=== PATIENT | female | born 1995 | race Hispanic/Latino ===

== ENCOUNTER 2024-02-19 06:32 | Inpatient (IN) | payer BC, SELFPAY ==
[2024-02-19 07:10] VITALS: BMI 35.5
[2024-02-19] MEDS ORDERED: Misoprostol 200 MCG TAB PR PRN (07:38)
[2024-02-19] MEDS ORDERED: Lorazepam 2 MG/ML VIAL SLOW IVP PRN (07:38)
[2024-02-19] MEDS ORDERED: fentaNYL 50 mcg/mL 1 mL Vial SLOW IVP PRN (07:38)
[2024-02-19] MEDS ORDERED: Diphenoxylate HCl/Atropine Tablet PO PRN (07:38)
[2024-02-19] MEDS ORDERED: HYDROcodone/Acetaminophen 5/325 mg Tablet PO PRN ×2 (07:38→17:32)
[2024-02-19] MEDS ORDERED: Acetaminophen 500 MG TAB PO PRN (07:38)
[2024-02-19] MEDS ORDERED: Labetalol HCl 100 MG/20 ML VIAL SLOW IVP PRN ×2 (07:38)
[2024-02-19] MEDS ORDERED: Methylergonovine 0.2 MG/ML VIAL IM PRN (07:38)
[2024-02-19] MEDS ORDERED: Calcium Gluc 4.6 MEQ/10 ML (100 MG/ML) SLOW IVP PRN (07:38)
[2024-02-19] MEDS ORDERED: hydrALAZINE 20 MG/ML VIAL SLOW IVP PRN ×3 (07:38)
[2024-02-19] MEDS ORDERED: Carboprost 250 MCG/ML AMP IM PRN (07:38)
[2024-02-19] MEDS ORDERED: Promethazine HCl 25 MG/ML VIAL IM PRN (07:38)
[2024-02-19] MEDS ORDERED: Ondansetron PF 4 MG/2 ML Vial IVP PRN (07:38)
[2024-02-19] MEDS ORDERED: Lidocaine 1% (PF) 30 ML VIAL SC PRN (07:38)
[2024-02-19] MEDS ORDERED: Ibuprofen 800 MG TAB PO PRN (07:38)
[2024-02-19] MEDS ORDERED: Oxytocin 30 units/NS 500 ML 500 ML IV SCH ×2 (07:45)
[2024-02-19] MEDS ORDERED: Magnesium Sulfate 20 gm/500 ml 20 GM/500 ML BAG IVPB SCH (07:45)
[2024-02-19] MEDS ORDERED: Lactated Ringer's 1,000 ML IV SCH (07:45)
[2024-02-19 08:03] LABS: Hematocrit 34.9 % (34.9-44.5); Hemoglobin 11.4 g/dL (12.0-15.5); Mean Corpuscular HGB CONC 32.7 g/dL (32.0-36.0); Mean Corpuscular Hemoglobin 27.3 pg (27.0-33.0); Mean Corpuscular Volume 83.5 fL (81.6-98.3); Mean Platelet Volume 10.9 fL (7.4-10.4); Platelet Count 314 10x3/uL (150-450); RBC Distribution Width 13.2 % (11.5-14.5); Red Blood Cell (RBC) Count 4.18 10x6/uL (3.90-5.03); White Blood Cell (WBC) Count 11.6 10x3/uL (3.5-10.5)
[2024-02-19 08:18] LABS: ALT (SGPT) 16 U/L (8-55); AST (SGOT) 17 U/L (5-34); Albumin 2.6 g/dL (3.5-5.0); Alkaline Phosphatase 128 U/L (40-110); Anion Gap 15 mmol/L (10-20); BUN (Urea Nitrogen) 9 mg/dL (7.0-18.7); Bilirubin, Total 0.3 mg/dL (0.2-1.2); Calc. Creatinine Clearance 207 mL/min (70-130); Calcium 8.7 mg/dL (7.8-10.44); Carbon Dioxide 18 mmol/L (22-29); Chloride 108 mmol/L (98-107); Estimated GFR 124; Globulin 3.8 g/dL (2.4-3.5); Glucose 80 mg/dL (70-105); Potassium 3.9 mmol/L (3.5-5.1); Protein, Total 6.4 g/dL (6.0-8.3); Sodium 137 mmol/L (136-145)
[2024-02-19 08:42] LABS: HBsAg Index 0.17 S/CO (0-0.99); Hep B Surf Ag - L&D Non-Reactive S/CO (NonReactive)
[2024-02-19 08:43] LABS: Syphilis Antibody Nonreactive (Nonreactive); Syphilis Antibody Index 0.06 S/CO (<1.00 Non-Reactive)
[2024-02-19] MEDS: Ibuprofen 800 MG TAB PO PRN (17:43)
[2024-02-19] MEDS: Magnesium Sulfate 20 gm/500 ml 20 GM/500 ML BAG ONE (23:11)
[2024-02-20] MEDS ORDERED: Benzocaine-Menthol 82.5 ML CAN TOP PRN ×2 (12:08→12:20)
[2024-02-20] MEDS ORDERED: Witch Hazel 100 PAD JAR TOP PRN (12:09)
[2024-02-20] MEDS ORDERED: diphenhydrAMINE 25 MG CAP PO PRN (12:20)
[2024-02-20] MEDS ORDERED: HYDROcodone/Acetaminophen 5/325 mg Tablet PO PRN ×2 (12:20)
[2024-02-20] MEDS ORDERED: Promethazine HCl 25 MG/ML VIAL IM PRN (12:20)
[2024-02-20] MEDS ORDERED: Milk Of Magnesia 30 ML UDCUP PO PRN (12:20)
[2024-02-20] MEDS ORDERED: Preparation H Ointment 28 GM TUBE PR PRN (12:20)
[2024-02-20] MEDS ORDERED: Bisacodyl 10 MG SUPP PR PRN (12:20)
[2024-02-20] MEDS ORDERED: Lanolin Ointment 7 GM TUBE TOP PRN (12:20)
[2024-02-20] MEDS ORDERED: hydrALAZINE 20 MG/ML VIAL SLOW IVP PRN (12:20)
[2024-02-20] MEDS ORDERED: Ondansetron PF 4 MG/2 ML Vial IVP PRN (12:20)
[2024-02-20] MEDS: Prenatal Vitamin 1 TAB PO SCH (13:47)
[2024-02-20] MEDS: Docusate 100 MG CAP PO SCH ×2 (13:47→21:45)
[2024-02-20] MEDS: Ibuprofen 800 MG TAB PO SCH (13:49)
[2024-02-20] MEDS: Ferrous Sulfate 325 MG TAB PO SCH (19:02)
[2024-02-21] MEDS: Magnesium Sulfate 20 gm/500 ml 20 GM/500 ML BAG ONE (01:05)
[2024-02-21] MEDS: hydrALAZINE 20 MG/ML VIAL ONE ×2 (01:05→01:06)
[2024-02-21] MEDS: Ondansetron PF 4 MG/2 ML Vial ONE (01:06)
[2024-02-21] MEDS: Boostrix 0.5 ML (Tdap) VIAL (>/=7 yrs of age) IM ONE (09:23)
[2024-02-21] MEDS: Prenatal Vitamin 1 TAB PO SCH (09:34)
[2024-02-21 11:18] VITALS: BP 133/75; TEMP 98.7
== END 2024-02-21 13:40 | disposition home or self-care (01) | DRG 768 ==
LOC: CSHLD/OP 06:32 → CSHLD 07:29 → CSHPED 02-20 11:05
PROVIDERS: ADMIT Student in an Organized Health Care Education/Training Program; ATTEND Student in an Organized Health Care Education/Training Program
PROC: 10E0XZZ Delivery of Products of Conception, External Approach (ICD-10-PCS; principal; 2024-02-19)
PROC: 0DQR0ZZ Repair Anal Sphincter, Open Approach (ICD-10-PCS; 2024-02-19)
DX: O13.4 Gestational [pregnancy-induced] hypertension without significant proteinuria, complicating childbirth (principal); Z37.0 Single live birth; Z3A.38 38 weeks gestation of pregnancy; O70.20 Third degree perineal laceration during delivery, unspecified
CPT/HCPCS: 51702; 80053; 85027; 86780; 86850; 86900; 86901; 87340; 99285; J0360; J2405; J3475

== ENCOUNTER 2024-03-22 20:02 | Emergency (ER) | payer BC ==
[2024-03-22 20:32] LABS: #Basophils 0.07 10x3/uL (0.0-0.2); #Eosinophils 0.31 10x3/uL (0.0-0.5); #Monocytes 1.01 10x3/uL (0.0-1.1); #Neutrophils 5.22 10x3/uL (1.5-8.4); %Basophils 0.7 % (0.0-2.0); %Monocytes 9.7 % (0.0-10.0); %Neutrophils 50.3 % (40.0-75.0); Hematocrit 33.3 % (34.9-44.5); Hemoglobin 10.9 g/dL (12.0-15.5); Mean Corpuscular HGB CONC 32.7 g/dL (32.0-36.0); Mean Corpuscular Hemoglobin 26.9 pg (27.0-33.0); Mean Corpuscular Volume 82.2 fL (81.6-98.3); Mean Platelet Volume 9.5 fL (7.4-10.4); Platelet Count 325 10x3/uL (150-450); RBC Distribution Width 13.4 % (11.5-14.5); Red Blood Cell (RBC) Count 4.05 10x6/uL (3.90-5.03); White Blood Cell (WBC) Count 10.4 10x3/uL (3.5-10.5)
[2024-03-22 20:43] LABS: BHCG - Serum Negative (NEGATIVE); Pregs Control Background? CLEAR/WHITE (CLR/WHITE); Pregs Control Bar Appear? YES (CONTROL BAR)
== END 2024-03-22 21:03 | disposition home or self-care (01) ==
LOC: CSHERS 20:02
DX: N92.0 Excessive and frequent menstruation with regular cycle (principal)
CPT/HCPCS: 36415; 84703; 85025; 99284